=== PATIENT | male | born 1970 | race Caucasian/White ===

== ENCOUNTER 2017-05-07 08:04 | Outpatient (CLI) | payer OTHER ==
[2017-05-07 11:15] LABS: CHOL/HDL RATIO 2.8 (<5.0); CHOLESTEROL 203 mg/dL; GLUCOSE 114 mg/dL (70-100); HDL CHOLESTEROL 73 mg/dL; LDL/HDL RATIO 1.5 (<3.6); TRIGLYCERIDES 91 mg/dL; VLDL CHOLESTEROL 18 mg/dL
== END 2017-05-07 08:05 | disposition home or self-care (01) ==
LOC: LAB.F 08:04
PROVIDERS: ATTEND Internal Medicine
DX: Z00.00 Encounter for general adult medical examination without abnormal findings (principal); E78.5 Hyperlipidemia, unspecified; Z80.0 Family history of malignant neoplasm of digestive organs; R73.01 Impaired fasting glucose; Z11.3 Encounter for screening for infections with a predominantly sexual mode of transmission; Z12.11 Encounter for screening for malignant neoplasm of colon
CPT/HCPCS: 36415; 80061; 82947; 86703; 87389

== ENCOUNTER 2018-05-12 09:44 | Outpatient (CLI) | payer OTHER ==
[2018-05-12 18:41] LABS: CHOL/HDL RATIO 2.6 (<5.0); CHOLESTEROL 189 mg/dL; GLUCOSE,FASTING 97 mg/dL (70-100); HDL CHOLESTEROL 73 mg/dL
[2018-05-12 18:53] LABS: LDL CHOLESTEROL,CALCULATED 102 mg/dL; LDL/HDL RATIO 1.4 (<3.6); VLDL CHOLESTEROL 14 mg/dL
== END 2018-05-12 09:45 | disposition home or self-care (01) ==
LOC: LAB.F 09:44
PROVIDERS: ATTEND Internal Medicine
DX: E78.5 Hyperlipidemia, unspecified (principal); R73.01 Impaired fasting glucose
CPT/HCPCS: 36415; 80061; 82947; 83721

== ENCOUNTER 2019-06-04 10:31 | Outpatient (CLI) | payer OTHER ==
[2019-06-04 18:24] LABS: CHOL/HDL RATIO 2.6 (<5.0); CHOLESTEROL 206 mg/dL; GLUCOSE,FASTING 108 mg/dL (70-100); HDL CHOLESTEROL 80 mg/dL; LDL CHOLESTEROL,CALCULATED 112 mg/dL; LDL/HDL RATIO 1.4 (<3.6); VLDL CHOLESTEROL 14 mg/dL
== END 2019-06-04 10:32 | disposition home or self-care (01) ==
LOC: LAB.S 10:31
PROVIDERS: ATTEND Internal Medicine
DX: E78.5 Hyperlipidemia, unspecified (principal); Z80.0 Family history of malignant neoplasm of digestive organs; R73.01 Impaired fasting glucose
CPT/HCPCS: 36415; 80061; 82947; 83721

== ENCOUNTER 2019-06-21 10:27 | Outpatient (CLI) | payer OTHER | END 2019-06-21 10:28 | disposition home or self-care (01) | LOC: LAB.S 10:27 | PROVIDERS: ATTEND Internal Medicine | DX: Z80.0 Family history of malignant neoplasm of digestive organs (principal); E78.5 Hyperlipidemia, unspecified; R73.01 Impaired fasting glucose; Z12.5 Encounter for screening for malignant neoplasm of prostate | CPT/HCPCS: 36415; 84153 ==

== ENCOUNTER 2020-08-14 11:19 | Outpatient (CLI) | payer OTHER ==
[2020-08-14 16:24] LABS: CHOL/HDL RATIO 3.5 (<5.0); CHOLESTEROL 216 mg/dL; GLUCOSE,FASTING 103 mg/dL (70-100); HDL CHOLESTEROL 62 mg/dL; LDL CHOLESTEROL,CALCULATED 122 mg/dL; VLDL CHOLESTEROL 32 mg/dL
== END 2020-08-14 11:20 | disposition home or self-care (01) ==
LOC: LAB.S 11:19
PROVIDERS: ATTEND Internal Medicine
DX: E78.5 Hyperlipidemia, unspecified (principal); R73.01 Impaired fasting glucose; Z80.0 Family history of malignant neoplasm of digestive organs
CPT/HCPCS: 36415; 80061; 82947; 83721

== ENCOUNTER 2021-08-10 08:10 | Outpatient (CLI) | payer OTHER ==
[2021-08-10 15:44] LABS: CHOL/HDL RATIO 3.2 (<5.0); CHOLESTEROL 215 mg/dL; HDL CHOLESTEROL 67 mg/dL; LDL CHOLESTEROL,CALCULATED 129 mg/dL; LDL/HDL RATIO 1.9 (<3.6); TRIGLYCERIDES 96 mg/dL; VLDL CHOLESTEROL 19 mg/dL
[2021-08-10 20:23] LABS: ESTIMATED AVERAGE GLUCOSE 114 mg/dL (70-100); HEMOGLOBIN A1c% 5.6 % (4.27-6.07)
== END 2021-08-10 08:11 | disposition home or self-care (01) ==
LOC: LAB.S 08:10
PROVIDERS: ATTEND Internal Medicine
DX: E78.5 Hyperlipidemia, unspecified (principal); R73.01 Impaired fasting glucose
CPT/HCPCS: 36415; 80061; 83036; 83721; 84153

== ENCOUNTER 2022-08-02 09:02 | Outpatient (CLI) | payer OTHER ==
[2022-08-02 15:30] LABS: CHOL/HDL RATIO 3.1 (<5.0); CHOLESTEROL 192 mg/dL; HDL CHOLESTEROL 61 mg/dL; LDL CHOLESTEROL,CALCULATED 112 mg/dL; LDL/HDL RATIO 1.8 (<3.6); TRIGLYCERIDES 95 mg/dL; VLDL CHOLESTEROL 19 mg/dL
[2022-08-02 21:12] LABS: ESTIMATED AVERAGE GLUCOSE 117 mg/dL (70-100); HEMOGLOBIN A1c% 5.7 % (4.27-6.07)
== END 2022-08-02 09:03 | disposition home or self-care (01) ==
LOC: LAB.S 09:02
PROVIDERS: ATTEND Internal Medicine
DX: E78.5 Hyperlipidemia, unspecified (principal); R73.01 Impaired fasting glucose
CPT/HCPCS: 36415; 80061; 83036; 83721